=== PATIENT | male | born 1950 | race Caucasian/White ===

== ENCOUNTER 2023-10-02 00:53 | Day surgery (SDC) | payer MEDICARE, OTHER, MEDICAID, SELFPAY ==
--- NOTE | 2023-09-26 13:07 | PC.NURSE ---
Report to the Outpatient Waiting Room, entrance under the green pavilion located off [facility], at time _0700 on date _10/02/23 . Planned Procedure Time: __0900 . Time changes happen often and if your time is changed the preop area will call you the afternoon before. - You and your visitor will be asked to self-screen and do not enter if you have any COVID symptoms. - A mask is optional within the hospital at this time. Patients may have clear liquids (water, carbonated beverages, clear teas, apple juice) until 3 hours prior to surgery ( 0600)with a maximum of 20 ounces. - No food from midnight until time of surgery - Infants may have breast milk until 4 hours before surgery, infant formula 6 hours prior to surgery. - Children will be allowed to drink immediately following surgery. If applicable, please bring a bottle or sippy cup to assist with drinking. Juice, water, soda, and popsicles are readily available. For infants on formula, please bring formula the day of surgery. Pacifiers are allowed. Take the following medications with a SIP of water the morning of surgery: __HYDROCODONE IF NEEDED FOR PAIN DO NOT STOP ANY OF YOUR OTHER PRESCRIPTION MEDICATIONS PRIOR TO SURGERY ?EXCEPT THE FOLLOWING Medications to discontinue per physician __PER DR BRODY PLEASE HOLD ASPIRIN AND MELOXICAM 7 DAYS PRE OP. LAST DOSE10/02/23.HOLD ALL VITAMINS AND SUPPLEMENTS 3 DAYS PRE OP .LAST DOSE 09/28/23 Please no make-up, nail yakut, hairspray, perfume, deodorant, or body powder the day of surgery. No jewelry (including any body piercings) or valuables the day of surgery, leave them at home. Please take a shower or bath the night before, or the morning of, surgery with an antibacterial soap. Wear comfortable, loose fitting clothing. Children are encouraged to wear pajamas. - Jewelry must be removed prior to entering the operating room. Rings and piercings that are not removed may be cut off. - The hospital will not accept responsibility for valuables. - Please leave all valuables, including medications, at home the day of surgery. If you are going home after surgery, a licensed catering truck driver must drive you home. - NO public transportation without another adult if you receive anesthesia. - We recommend that an adult stay with you for 24 hours following discharge. - We also recommend that you do not drive, make important decision, drink alcoholic beverages, or take any drugs that were not prescribed by your health care provider for at least 24 hours after your discharge time. Follow any additional instructions given to you from your surgeon. If you or anyone in your household have experienced Covid symptoms in the past week, please notify your surgeon or the nurse liaison at the phone number below for possible testing. Telephone instructions given to _PATIENT AND FAXED TO [facility] 09/26/23 AT 4501 and asked if any additional questions and then verbalized understanding. Patient advised to call surgeon office or pre surgery nurse liaison [phone] if any additional questions.
[2023-09-26 13:11] VITALS: BMI 24.1
--- NOTE | 2023-09-30 07:05 | PM.HPGS ---
History of Present Illness History of Present Illness Consent: Risks, benefits, and alternatives have been discussed and questions answered. Patient agrees to proceed with procedure. Chief complaint: bladder stones Narrative: Nikolay Crouch is a 73 year old male Presents a significant challenge with bladder outlet obstruction secondary to 190 g prostate. Options are limited because of his lower extremity contractures and he has not felt to be a candidate for PE. He is scheduled for consideration of holmium laser enucleation of the prostate. He has also been found to have multiple small bladder stones on outside CT scan. He presents today for cystoscopy with bladder stone extraction Review of Systems Review of Systems: All systems reviewed & are unremarkable except as noted in HPI and below PMFSH Social History Social History Smoking status: Never smoker Living arrangements: [facility] Spiritual care concerns: No Meds Home Medications and Allergies Home Medications Medication Instructions Recorded Confirmed Type acetaminophen 325 mg capsule 650 mg PO PRN PRN Pain 09/26/23 09/26/23 History aspirin 81 mg tablet,delayed 81 mg PO DAILY 09/26/23 09/26/23 History release (Adult Low Dose Aspirin) bacitracin-polymyxin B topical 1 ea topical QSHIFT 09/26/23 09/26/23 History ointment baclofen 10 mg tablet 10 mg PO TID 09/26/23 09/26/23 History bisacodyl 10 mg rectal suppository 10 mg RECTAL PRN PRN Constipation 09/26/23 09/26/23 History finasteride 5 mg tablet 5 mg PO DAILY 09/26/23 09/26/23 History hydrocodone 5 mg-acetaminophen 325 1 tablet PO Q4-5H PAIN 09/26/23 09/26/23 History mg tablet krill 1 cap PO DAILY 09/26/23 09/26/23 History uou-bv6-[id number]-ose-io4-yvd-astax 1,500 mg-165 mg-67.5 mg capsule (Krill Oil ([place] 3 and 6)) loperamide 2 mg capsule 1 mg PO Q6H PRN Diarrhea 09/26/23 09/26/23 History magnesium hydroxide 400 mg/5 mL 30 ml PO PRN PRN Constipation 09/26/23 09/26/23 History oral suspension (Milk of Magnesia) melatonin 5 mg tablet 5 mg PO HS 09/26/23 09/26/23 History meloxicam 15 mg tablet 15 mg PO DAILY 09/26/23 09/26/23 History naloxone 1 mg/mL injection syringe 2 mg IM PRN PRN DRUG OVERDOSE 09/26/23 09/26/23 History nystatin 1 billion unit oral powder 1 unit TID RASH 09/26/23 09/26/23 History sennosides 8.6 mg tablet (senna) 8.6 mg PO DAILY 09/26/23 09/26/23 History solifenacin 10 mg tablet 10 mg PO HS 09/26/23 09/26/23 History tamsulosin 0.4 mg capsule 0.4 mg PO QPM 09/26/23 09/26/23 History zolpidem 5 mg tablet 5 mg PO HS 09/26/23 09/26/23 History Allergies Allergy/AdvReac Type Severity Reaction Status Date / Time No Known Allergies Allergy Unverified 09/26/23 09:04 Exam Const: General: no acute distress Resp: Effort & Inspection: normal respiratory effort GI: Inspection: non-distended GI Palp: No abdominal tenderness and No Guarding due to palpation present (GI) Auscultation: normal bowel sounds Assessment and Plan Assessment and plan (1) BPH loc w urin obs/LUTS: Code(s): N40.1 - Benign prostatic hyperplasia with lower urinary tract symptoms Status: Acute (2) Bladder stones: Code(s): N21.0 - Calculus in bladder Status: Acute Assessment and Plan: Cystoscopy, bladder stone extraction with possible laser lithotripsy
[2023-10-02] VITALS (9 sets, daily range): BP systolic 128–163; BP diastolic 66–86; PULSE 65–85; RESP 15–20; TEMP 36.2–36.9; O2SAT 96–99
--- NOTE | 2023-10-02 06:26 | WPDHPUPDATE1 ---
History and Physical Update Update Date/Time: 10/02/23 06:26 History and Physical has been reviewed, including an updated exam of the patient. There are NO changes in the patient's condition. Risks, benefits, and alternatives have been discussed and questions answered. Patient agrees to proceed with procedure.
[2023-10-02] MEDS: LACTATED RINGERS 1,000 ML 30 ML IV CONT ×2 (07:14→09:18)
--- NOTE | 2023-10-02 08:14 | WPDANESEPPF ---
Anes - Initial Pre Proc Eval Procedure: Operation Date: 10/02/23 09:00 Proposed Procedures p Cystoscopy, Bladder Stone Extraction - Chavo Mast MD Date/Time: 10/02/23 08:14 Surgeon: Chavo Mast MD Pre Op Diagnosis: bladder stones Patient Data Age: 73 Gender: M Height: 1.83 m Weight: 77.1 kg Last Vital Signs Temp 98.5 F 10/02/23 07:15 Pulse 65 10/02/23 07:15 Resp 16 10/02/23 07:15 BP 128/66 10/02/23 07:15 Pulse Ox 98 10/02/23 07:15 O2 Del Method Room Air 10/02/23 07:15 Allergies Allergy/AdvReac Type Severity Reaction Status Date / Time No Known Allergies Allergy Unverified 09/26/23 09:04 Home Medications Medication Instructions Recorded Confirmed Type acetaminophen 325 mg capsule 650 mg PO PRN PRN Pain 09/26/23 09/26/23 History aspirin 81 mg tablet,delayed 81 mg PO DAILY 09/26/23 09/26/23 History release (Adult Low Dose Aspirin) bacitracin-polymyxin B topical 1 ea topical QSHIFT 09/26/23 09/26/23 History ointment baclofen 10 mg tablet 10 mg PO TID 09/26/23 09/26/23 History bisacodyl 10 mg rectal suppository 10 mg RECTAL PRN PRN Constipation 09/26/23 09/26/23 History finasteride 5 mg tablet 5 mg PO DAILY 09/26/23 09/26/23 History hydrocodone 5 mg-acetaminophen 325 1 tablet PO Q4-5H PAIN 09/26/23 09/26/23 History mg tablet krill 1 cap PO DAILY 09/26/23 09/26/23 History cey-cc0-rho-doh-aa3-whn-astax 1,500 mg-165 mg-67.5 mg capsule (Krill Oil ([place] 3 and 6)) loperamide 2 mg capsule 1 mg PO Q6H PRN Diarrhea 09/26/23 09/26/23 History magnesium hydroxide 400 mg/5 mL 30 ml PO PRN PRN Constipation 09/26/23 09/26/23 History oral suspension (Milk of Magnesia) melatonin 5 mg tablet 5 mg PO HS 09/26/23 09/26/23 History meloxicam 15 mg tablet 15 mg PO DAILY 09/26/23 09/26/23 History naloxone 1 mg/mL injection syringe 2 mg IM PRN PRN DRUG OVERDOSE 09/26/23 09/26/23 History nystatin 1 billion unit oral powder 1 unit TID RASH 09/26/23 09/26/23 History sennosides 8.6 mg tablet (senna) 8.6 mg PO DAILY 09/26/23 09/26/23 History solifenacin 10 mg tablet 10 mg PO HS 09/26/23 09/26/23 History tamsulosin 0.4 mg capsule 0.4 mg PO QPM 09/26/23 09/26/23 History zolpidem 5 mg tablet 5 mg PO HS 09/26/23 09/26/23 History Patient hx anesthesia problems: none Family hx anesthesia problems: none Results Review: All pre-operative results and documents have been reviewed as part of the pre-operative evaluation. [facility] Social History Social History Smoking status: Never smoker Living arrangements: senior care Spiritual care concerns: No Anes - Eval Final PreProcedure Day of Procedure 10/02/23 08:14 Patient weight: normal Heart: regular rate and rhythm Lungs: clear to auscultation Airway: Mallampati scale class II Neurological: alert and oriented Last oral intake: >/= 8 hours ASA classification: III Emergent: no Anesthetic plan: proceed Anesthesia type and monitoring: general LMA and standard monitoring Results Review: All pre-operative results and documents have been reviewed as part of the pre-operative evaluation. Pt nonambulatory, resides in a senior care. Informed Consent: The patient's anesthetic plan and its attendant risks and benefits were discussed with the patient/family/POA. Questions were solicited and answers provided to the satisfaction of the patient/family/POA.
[2023-10-02] MEDS: ceFAZolin 2 GM/D5W 50 ML 2 GM/50 ML BAG IVPB (08:38)
--- NOTE | 2023-10-02 09:20 | W.PM.PROC2 ---
Procedure Note - Detailed Date of Procedure 10/02/23 Pre-op Diagnosis BPH, bladder stones Post-op Diagnosis Same Procedure Performed Cystoscopy, extraction multiple bladder stones, Torres catheter placement Surgeon Chavo Mast MD Anesthesia General Description of Procedure Patient is brought to the operative suite was prepped and draped in a routine sterile fashion while in a modified supine/dorsal lithotomy ( a limited because of severe lower extremity contractures) position. With considerable difficulty was able to get a 24 F resectoscope into his bladder. He has no urethral stricture but marked prostatic hyperplasia in about a 3-3.5 cm prostatic urethra. Multiple bladder calculi were removed using either a loop electrode or Ellik evacuation. At the termination all bladder stones had been removed. I did place an 18 F Torres catheter. Drains Yes Packing No Pathology None sent Complications No immediate complications Condition Stable Disposition PACU
--- NOTE | 2023-10-02 09:21 | SUR.OPER ---
PATIENT TO STRETCHER ON AIR SLIDER/LEGS WITH PILLOW BETWEEN LEGS/NATURAL LEAN TO PATIENTS LEFT PILLOW BETWEEN LEG AND SIDERAIL FOR SUPPORT BENAVIDES STRAP ON RIGHT UPPER THIGH AND FOLET TO FOOT OF BED AND SECURED ON BED RAIL AND VISIBLE. PATIENT MAINTAINED ORIGINAL CONTRACTURED POSITION THROUGH OUT TRANSFERS AND SURGERY.
--- NOTE | 2023-10-02 10:20 | SUR.PHASEII ---
10:20 - spoke with Ilana from [facility] in regards to pt's status and discharge instructions
--- NOTE | 2023-10-02 10:32 | SUR.PHASEII ---
1030 - dr. champion in room talking with pt. dr. champion aware of bloody urine at this time.
--- NOTE | 2023-10-02 11:12 | SUR.PHASEII ---
1100 - pt ready for discharge. waiting for [place] van for order picker/assembler
--- NOTE | 2023-10-02 11:13 | SUR.PHASEII ---
1045 - dr. champion at bedside irrigating devries catheter
== END 2023-10-02 11:26 ==
PROVIDERS: PCP Internal Medicine; Visit Provider Urology
PROC: 0TCB8ZZ Extirpation of Matter from Bladder, Via Natural or Artificial Opening Endoscopic (ICD-10-PCS; CPT 52352; principal; 2023-10-02 09:00)
DX: N21.0 Calculus in bladder (principal); N40.1 Benign prostatic hyperplasia with lower urinary tract symptoms; Z79.82 Long term (current) use of aspirin; Z79.891 Long term (current) use of opiate analgesic
CPT/HCPCS: 52310; 82365; 88300; J0690; J2405; J2704; J3010; J7120